=== PATIENT | female | born 2000 | race African-American/Black ===

== ENCOUNTER 2022-03-25 23:29 | Emergency (ER) | payer OTHER, BC ==
[2022-03-26 00:05] VITALS: BP 121/84; PULSE 101; RESP 20; TEMP 98.1; BMI 25.5
[2022-03-26] MEDS ORDERED: DIPHTH,PERTUSS(ACELL),TET 0.5 ML DISP.SYRIN IM ONE (00:16)
[2022-03-26] MEDS ORDERED: ACETAMINOPHEN 500 MG TABLET (FP) PO ONE (01:28)
[2022-03-26] MEDS ORDERED: ACETAMINOPHEN 325 MG TABLET (FP) ONE (01:40)
== END 2022-03-26 03:08 | disposition home or self-care (01) ==
LOC: JER 23:29
PROC: 0HQLXZZ Repair Left Lower Leg Skin, External Approach (ICD-10-PCS; principal; 2022-03-25)
PROC: 3E0234Z Introduction of Serum, Toxoid and Vaccine into Muscle, Percutaneous Approach (ICD-10-PCS; 2022-03-25)
DX: S81.812A Laceration without foreign body, left lower leg, initial encounter (principal); W22.8XXA Striking against or struck by other objects, initial encounter
CPT/HCPCS: 73564-TC-LT-FY; 73564-TC-RT-FY; 73590-TC-LT-FY; 90715; 99284-25